=== PATIENT | female | born 1970 | race African-American/Black ===

== ENCOUNTER 2023-12-23 23:06 | Emergency (ER) | payer BC ==
[~2023-12-23] VITALS: Ht 162.6 cm; Wt 80.4 kg
[2023-12-23 23:31] VITALS: BP 154/92; PULSE 91; RESP 14; TEMP 97.3; O2SAT 99
[2023-12-24] MEDS: TETRACAINE HCL 0.5% OPTH(EYE) SOLN 4ML EACHEYE ONE (02:04)
[2023-12-24] MEDS: FLUORESCEIN SOD OPTH TEST STRIP EACHEYE ONE (02:04)
[2023-12-24] MEDS: SODIUM CHLORIDE 0.9% 500 ML IV ONE (02:59)
[2023-12-24] MEDS ORDERED: MOXI0.5S3 OP (03:20)
== END 2023-12-24 03:30 | disposition home or self-care (01) ==
LOC: ER 23:06
DX: S05.01XA Injury of conjunctiva and corneal abrasion without foreign body, right eye, initial encounter (principal); Z79.899 Other long term (current) drug therapy; X58.XXXA Exposure to other specified factors, initial encounter; Y93.89 Activity, other specified; Y92.89 Other specified places as the place of occurrence of the external cause; Y99.8 Other external cause status